=== PATIENT | female | born 1995 | race Two or more races ===

== ENCOUNTER 2018-10-08 15:11 | Emergency (ER) | payer MEDICAID ==
[~2018-10-08] VITALS: Ht 154.9 cm; Wt 82.0 kg
[2018-10-08] MEDS ORDERED: KETOROLAC 30MG/ML VIAL IM ONE (16:15)
[2018-10-08] MEDS ORDERED: DEXAMETHASONE 10 MG/ML VIAL IM ONE (16:15)
[2018-10-08 16:57] VITALS: BP 113/79
== END 2018-10-08 16:58 | disposition home or self-care (01) ==
LOC: ER 15:11
DX: J02.9 Acute pharyngitis, unspecified (principal)
CPT/HCPCS: 87070; 87430; 96372; 99283; J1100; J1885